=== PATIENT | male | born 1965 | race African-American/Black ===

== ENCOUNTER 2017-04-22 08:08 | Emergency (ER) | payer MEDICARE, OTHER ==
[~2017-04-22] VITALS: Ht 185.4 cm; Wt 88.2 kg
[~2017-04-22 08:08] MED LIST: SOMA; VICODIN
[2017-04-22 08:12] VITALS: BP 136/72
== END 2017-04-22 11:28 | disposition home or self-care (01) ==
LOC: ER 08:27
DX: S39.011A Strain of muscle, fascia and tendon of abdomen, initial encounter (principal); Z87.891 Personal history of nicotine dependence; X58.XXXA Exposure to other specified factors, initial encounter; Y93.89 Activity, other specified; Y92.89 Other specified places as the place of occurrence of the external cause; Y99.8 Other external cause status
CPT/HCPCS: 99281